=== PATIENT | female | born 1990 | race Caucasian/White ===

== ENCOUNTER 2025-05-31 08:32 | Outpatient (CLI) | payer OTHER | END 2025-05-31 08:36 | disposition home or self-care (01) | LOC: PRENATAL 08:32 | PROVIDERS: ATTEND Obstetrics & Gynecology Maternal & Fetal Medicine | DX: O44.00 Complete placenta previa NOS or without hemorrhage, unspecified trimester (principal); O36.8130 Decreased fetal movements, third trimester, not applicable or unspecified; O09.519 Supervision of elderly primigravida, unspecified trimester; Z3A.33 33 weeks gestation of pregnancy ==